=== PATIENT | male | born 1955 | race Caucasian/White ===

== ENCOUNTER 2023-12-06 05:34 | Observation (INO) ==
[2023-12-06 06:27] LABS: Rapid COVID-19 Molecular Undetected (Undetected)
[2023-12-06] MEDS ORDERED: Ondansetron 4 mg VIAL 2 MG/ML 2 ml VIAL IV PRN ×2 (07:33→07:35)
[2023-12-06] MEDS ORDERED: Naloxone 0.4 mg VIAL 0.4 mg/ml 1 ml VIAL IV PRN ×2 (07:35)
[2023-12-06] MEDS ORDERED: fentaNYL 100 mcg/2 ml 50 MCG/ML VIAL IV PRN (07:35)
[2023-12-06] MEDS ORDERED: Metoclopramide 5 MG/ML VIAL (10 mg) IV PRN (07:35)
[2023-12-06] MEDS: Ampicillin ADVAN 2 GM in NS 0.9% 100 ML 100 ML IVPB ONE (07:46)
[2023-12-06] MEDS: Gentamicin ADULT 340 MG in NS 0.9% 100 ml BAG 100 ML IVPB ONE (07:46)
[2023-12-06] MEDS ORDERED: Midazolam 2 mg/2 ml VIAL 1 mg/ml 2 ml VIAL (2 mg) ONE (08:08)
[2023-12-06] MEDS ORDERED: fentaNYL 100 mcg/2 ml 50 MCG/ML VIAL ONE (08:08)
[2023-12-06] MEDS ORDERED: Propofol 10 MG/ML 20 ML BTL ONE (08:08)
[2023-12-06] MEDS ORDERED: Lidocaine 2% PF 5 ML VIAL ONE (08:08)
[2023-12-06] MEDS ORDERED: Rocuronium 50 mg VIAL 10 mg/ml 5 ml VIAL (50 mg) ONE ×2 (08:18→09:09)
[2023-12-06] MEDS ORDERED: Succinylcholine 200 mg VIAL 20 mg/ml 10 ml VIAL (200 mg) ONE (08:18)
[2023-12-06] MEDS ORDERED: Clindamycin 900 MG/50 **NS BAG 900 MG/50 ML BAG ONE (08:40)
[2023-12-06] MEDS ORDERED: Phenylephrine 40 mcg/mL 10mL (400mcg) SYRINGE ONE (09:10)
[2023-12-06] MEDS ORDERED: Ondansetron 4 mg VIAL 2 MG/ML 2 ml VIAL ONE (09:16)
[2023-12-06] MEDS ORDERED: Dexamethasone IV 4 MG/ML VIAL 1 ml VIAL ONE (09:16)
[2023-12-06] MEDS: Buffered Lidocaine 1% SYRIN 1 ml INTRADERM ONE (12:22)
[2023-12-06] MEDS: Scopolamine 1 mg/72hr PATCH TRANSDERM ONE (12:23)
[2023-12-06] MEDS: Magnesium Hydroxide LIQ 30 ML UDC PO SCH (12:43)
[2023-12-06] MEDS: Lactated Ringers 1000 ml BAG 1,000 ML IV SCH (12:44)
[2023-12-06] MEDS: Neomycin/Polym/Bacit TOP OINT 15 GM TOPICAL SCH (12:44)
[2023-12-06] MEDS: NS 0.9% 1000 ml BAG 1,000 ML IV SCH (13:47)
[2023-12-07 06:24] LABS: Hematocrit 38.1 % (38-53); Mean Corpuscular Hemoglobin 30.6 pg (27-33); Mean Corpuscular Hgb Conc 34.1 g/dL (31-36); Mean Corpuscular Volume 89.9 fL (80-97); Mean Platelet Volume 8.2 fL (7.5-11.2); Platelet Count 262 10^3/uL (150-450); Red Blood Count 4.24 10^6/uL (4.06-5.63); Red Cell Distribution Width 13.4 % (12-17); White Blood Count 10.8 10^3/uL (3.6-10.2)
[2023-12-07 07:15] LABS: Calcium 8.9 mg/dL (8.6-10.3); Creatinine, Serum 0.73 mg/dL (0.67-1.17); Potassium 4.5 mmol/L (3.5-5.0); eGFR CKD-EPI 99.1 (>60)
== END 2023-12-07 15:35 | disposition home or self-care (01) ==
LOC: OR 05:34 → SSU 05:34
PROVIDERS: ADMIT Urology; ATTEND Urology